=== PATIENT | female | born 1945 | race American Indian/Alaskan Native ===

== ENCOUNTER 2017-11-13 22:37 | Inpatient (IN) | payer MEDICARE, OTHER ==
[2017-11-13 22:50] VITALS: BMI 29.9
[2017-11-13] MEDS ORDERED: Oxycodone/Acetaminophen 5/325 mg Tab PO STA (23:28)
--- NOTE | 2017-11-13 23:51 | ED PDOC ---
Arrival/HPI <Wili Jha - Last Filed: 11/14/17 01:10> - General Historian: Patient <Terry Younger A - Last Filed: 11/14/17 02:08> - General Chief Complaint: Back Pain Time Seen by Provider: 11/13/17 22:56 - History of Present Illness Narrative History of Present Illness (Text): 11/13/17 23:41 71yo female with history of Scoliosis present via EMS with complaint of back pain s/p trauma. Patient reports chronic back pain that became worse after she slipped from the chair she was sitting on and fell to the floor. States she landed backwards on the floor. States pain started few hours after the fall. States pain is sharp and worse with movement. States pain radiates to her lower legs b/l. She report that she takes Percocet for her pain and took it after the trauma. she denies hitting her head. Denies LOC, focal weakness, nausea, vomiting, urinary/fecal incontinence, saddle anesthesia. any other complaint. ( Terry Younger) Past Medical History - Provider Review Nursing Documentation Reviewed: Yes - Infectious Disease Hx of Infectious Diseases: None - Cardiac Hx Pacemaker: No - Neurological Hx Paralysis: No - Hematological/Oncological Hx Blood Transfusions: No - Musculoskeletal/Rheumatological Hx Musculoskeletal Disorders: Yes (SCOLIOSIS) - Psychiatric Hx Emotional Abuse: No Hx Physical Abuse: No Hx Substance Use: No - Anesthesia Hx Anesthesia Reactions: No Hx Malignant Hyperthermia: No - Suicidal Assessment Feels Threatened In Home Enviroment: No <Terry Younger - Last Filed: 11/14/17 02:08> Family/Social History - Physician Review Nursing Documentation Reviewed: Yes Family/Social History: Unknown Family HX Smoking Status: Never Smoked Hx Alcohol Use: No Hx Substance Use: No <Terry Younger A - Last Filed: 11/14/17 02:08> Allergies/Home Meds <Wili Jha - Last Filed: 11/14/17 01:10> <Terry Younger A - Last Filed: 11/14/17 02:08> Allergies/Adverse Reactions: Allergies No Known Allergies Allergy (Verified 03/26/13 10:25) Home Medications: Home Meds Medication Instructions Recorded Confirmed Carisoprodol [Soma] 250 mg PO BID 03/26/13 03/26/13 Review of Systems - Physician Review All systems were reviewed & negative as marked: Yes - Review of Systems Constitutional: Normal Eyes: Normal ENT: Normal Respiratory: Normal Cardiovascular: Normal Gastrointestinal: Normal Genitourinary Female: Normal Musculoskeletal: Back Pain Skin: Normal Neurological: Normal Endocrine: Normal Hemo/Lymphatic: Normal Psychiatric: Normal <Terry Younger A - Last Filed: 11/14/17 02:08> Physical Exam Vital Signs Reviewed: Yes Temperature: Afebrile Blood Pressure: Normal Pulse: Regular Respiratory Rate: Normal Appearance: Positive for: Well-Appearing, Non-Toxic, Comfortable Pain Distress: None Mental Status: Positive for: Alert and Oriented X 3 - Systems Exam Head: Present: Atraumatic, Normocephalic Pupils: Present: PERRL Extroacular Muscles: Present: EOMI Conjunctiva: Present: Normal Mouth: Present: Moist Mucous Membranes Neck: Present: Normal Range of Motion Respiratory/Chest: Present: Clear to Auscultation, Good Air Exchange. No: Respiratory Distress, Accessory Muscle Use Cardiovascular: Present: Regular Rate and Rhythm, Normal S1, S2. No: Murmurs Abdomen: No: Tenderness, Distention, Peritoneal Signs Back: Present: Pain with Leg Raise (B/L). No: Midline Tenderness, Paraspinal Tenderness Upper Extremity: Present: Normal Inspection. No: Cyanosis, Edema Lower Extremity: Present: Normal Inspection. No: Edema Neurological: Present: GCS=15, CN II-XII Intact, Speech Normal Skin: Present: Warm, Dry, Normal Color. No: Rashes Psychiatric: Present: Alert, Oriented x 3, Normal Insight, Normal Concentration <Terry Younger A - Last Filed: 11/14/17 02:08> Vital Signs Temp Pulse Resp BP Pulse Ox 11/14/17 01:59 98.2 F 94 H 18 144/85 98 11/13/17 22:46 97.9 F 103 H 18 163/98 H 97 Medical Decision Making <Wili Jha - Last Filed: 11/14/17 01:10> <Terry Younger - Last Filed: 11/14/17 02:08> ED Course and Treatment: 11/14/17 02:03 PT in ED for stated history. She continued to complain of pain s/p medication was given. LS CT IMPRESSION: - No acute lumbar spine fractures identified. - Findings involving the sacroiliac joint which could be secondary to marked sacroiliitis versus degenerative changes. - Postoperative changes. - See above for remaining findings. Head CT - No acute finding Secondary to pt's persistent pain she will be admitted for possible MRI and evaluation. Case was DW Dr. Mendoza and she accepted pt for admission. (Aren,Terry Briscoe) - RAD Interpretation Radiology Orders: 11/13/17 22:56 HEAD W/O CONTRAST [CT] Stat LUMBAR SPINE W/O CONTRAST [CT] Stat - Medication Orders Current Medication Orders: Discontinued Medications Diazepam (Valium) 5 mg PO ONCE ONE PRN Reason: Protocol Stop: 11/14/17 00:50 Last Admin: 11/14/17 01:27 Dose: 5 mg Ketorolac Tromethamine (Toradol) 30 mg IVP STAT STA Stop: 11/14/17 00:50 Last Admin: 11/14/17 01:27 Dose: 30 mg MAR Pain Assessment Document 11/14/17 01:27 HERMINIO (Rec: 11/14/17 01:28 HERMINIO [id number]) Pain Reassessment Is this a pain reassessment? Yes Sleep Is patient sleeping during reassessment? No Location Pain Location Body Site Back IVP Administration Document 11/14/17 01:27 HERMINIO (Rec: 11/14/17 01:28 HERMINIO [id number]) Charges for Administration # of IVP Administrations 1 Oxycodone/Acetaminophen (Percocet 5/325 Mg Tab) 1 tab PO STAT STA Stop: 11/13/17 23:29 Last Admin: 11/14/17 00:16 Dose: 1 tab MAR Pain Assessment Document 11/14/17 00:16 HERMINIO (Rec: 11/14/17 00:16 HERMINIO [id number]) Pain Reassessment Is this a pain reassessment? Yes Sleep Is patient sleeping during reassessment? No Presence of Pain Presence of Pain Yes Location Upper or Lower Lower Pain Location Body Site Back - PA / COLORIST / Resident Statement / has reviewed & agrees with the documentation as recorded. / has examined the patient and agrees with the treatment plan. <Wili Jha - Last Filed: 11/14/17 01:10> Disposition/Present on Arrival <Wili Jha - Last Filed: 11/14/17 01:10> - Present on Arrival Any Indicators Present on Arrival: No History of DVT/PE: No History of Uncontrolled Diabetes: No Urinary Catheter: No History of Decub. Ulcer: No History Surgical Site Infection Following: None - Disposition Have Diagnosis and Disposition been Completed?: Yes Disposition Time: 01:00 Patient Plan: Admission <Terry Yougner - Last Filed: 11/14/17 02:08> - Disposition Diagnosis: Sacroiliitis, Intractable back pain, Fall Disposition: HOSPITALIZED Patient Problems: Current Active Problems Problem Status Onset Fall Acute Intractable back pain Acute Sacroiliitis Acute Condition: STABLE
--- NOTE | 2017-11-14 00:23 | CT ---
EXAM: CT Head Without Intravenous Contrast EXAM DATE/TIME: 11/13/2017 10:56 PM CLINICAL HISTORY: 71 years old, female; Injury or trauma; Fall; Initial encounter; Blunt trauma (contusions or hematomas); Consciousness not specified; Additional info: Head injury TECHNIQUE: Axial computed tomography images of the head/brain without intravenous contrast. All CT scans at this facility use one or more dose reduction techniques, viz.: automated exposure control; ma/kV adjustment per patient size (including targeted exams where dose is matched to indication; i.e. head); or iterative reconstruction technique. COMPARISON: No relevant prior studies available. FINDINGS: BRAIN: Physiologic basal ganglia calcification. No significant acute abnormality identified. No acute hemorrhage seen within the brain. No acute extra-axial fluid collections visualized. No evidence of significant mass effect within the brain. VENTRICLES: No evidence of significant hydrocephalus. BONES/JOINTS: Left nasal bone fracture, which appears chronic. No acute fractures are seen. SOFT TISSUES: No acute abnormality of the visualized soft tissues is seen. SINUSES: Visualized paranasal sinuses appear clear. MASTOID AIR CELLS: Mastoid air cells appear clear. IMPRESSION: - No evidence of acute intracranial injury. - See above for remaining findings.
--- NOTE | 2017-11-14 00:36 | CT ---
EXAM: CT Lumbar Spine Without Intravenous Contrast EXAM DATE/TIME: 11/13/2017 10:56 PM CLINICAL HISTORY: 71 years old, female; Pain; Low back pain TECHNIQUE: Axial computed tomography images of the lumbar spine without intravenous contrast. All CT scans at this facility use one or more dose reduction techniques, viz.: automated exposure control; ma/kV adjustment per patient size (including targeted exams where dose is matched to indication; i.e. head); or iterative reconstruction technique. Coronal and sagittal reformatted images were created and reviewed. COMPARISON: No relevant prior studies available. FINDINGS: LIMITATIONS: Streak artifact from metallic hardware in the spine. VERTEBRAE: Long, left-sided metallic kaden extending from the lower thoracic spine to the S1 level. Extensive chronic bony hypertrophic changes involving the posterior elements of T11 through L5. Vertebrae appear demineralized. Left convex scoliosis of the spine. No acute fractures are seen. No evidence of acute vertebral compression fractures. SACRUM/COCCYX: Extensive cystic changes involving the sacroiliac joints. Extensive sclerosis abutting the sacroiliac joints. Air in the sacroiliac joints bilaterally. Findings could be secondary to marked sacroiliitis versus degenerative changes. OTHER BONES/JOINTS: Postoperative changes involving the left iliac bone. DISCS/SPINAL CANAL/NEURAL FORAMINA: Intervertebral disc heights are preserved. No evidence of bony spinal canal stenosis. SOFT TISSUES: No acute abnormality of the visualized soft tissues is seen. REPRODUCTIVE: Calcified uterine fundal mass incidentally noted, most compatible a fibroid. IMPRESSION: - No acute lumbar spine fractures identified. - Findings involving the sacroiliac joint which could be secondary to marked sacroiliitis versus degenerative changes. - Postoperative changes. - See above for remaining findings.
[2017-11-14 02:06] LABS: BASO # 0.03 K/mm3 (0.0-2.0); BASO % 0.3 % (0.0-3.0); EOS # 0.2 (0.0-0.7); EOS % 1.6 % (1.5-5.0); GRAN # 5.83 (1.4-6.5); GRAN % 59.1 % (50.0-68.0); HEMOGLOBIN 11.2 g/dL (12.0-16.0); LYMPH # 3.3 (1.2-3.4); LYMPH % 33.6 % (22.0-35.0); MEAN CORPUSCULAR HGB CONC 31.8 g/dl (31.0-37.0); MEAN PLATELET VOLUME 9.1 fl (7.0-11.0); MONO # 0.5 (0.1-0.6); MONO % 5.4 % (1.0-6.0); RED CELL DISTRIBUTION WIDTH 15.3 % (11.5-14.5); WHITE BLOOD COUNT 9.9 10^3/ul (4.5-11.0)
[2017-11-14 02:08] LABS: ALB/GLOB RATIO 1.2 (1.1-1.8); ALT/SGPT 16 U/L (7-56); AST/SGOT 29 U/L (14-36); BLOOD UREA NITROGEN 8 mg/dL (7-21); CALCIUM 9.1 mg/dL (8.4-10.5); GFR AFRICAN-AMERICAN > 60; GFR NON-AFRICAN AMERICAN > 60
[2017-11-14] MEDS ORDERED: Potassium Chloride 20 mEq ER Tab PO STA (02:11)
[2017-11-14] MEDS: Oxycodone/Acetaminophen 10/325 mg Tab PO PRN ×2 (11:19→18:41)
[2017-11-14] MEDS: TraMADol/Apap 37.5/325 mg Tab PO PRN ×2 (15:37→22:16)
[2017-11-14] MEDS: Lidocaine 5% Patch TD SCH (17:52)
--- NOTE | 2017-11-14 18:42 | RAD ---
HISTORY: fall/back pain COMPARISON: No prior. FINDINGS: BONES: Moderate to severe dextroscoliotic curvature. Vertebral bodies appear maintained in height. No listhesis. Left-sided spinal kaden noted. DISC SPACES: Normal. SOFT TISSUES: Normal. OTHER FINDINGS: None. IMPRESSION: No evidence acute fracture. Dextroscoliosis with spinal fixation rods.
--- NOTE | 2017-11-14 18:44 | RAD ---
PROCEDURE: Radiographs of the pelvis and bilateral hips HISTORY: s/p fall lower back pain COMPARISON: None. FINDINGS: BONES: Pelvis: Unremarkable. Right hip:Unremarkable Left hip:Unremarkable JOINTS: Right hip: Osteoarthritis Left hip: Osteoarthritis Sacroiliac Joints: Severe degenerative arthritis of both sacroiliac joints with extensive surrounding sclerosis. Pubic symphysis: Unremarkable. SOFT TISSUES: Normal. OTHER FINDINGS: None. IMPRESSION: Osteoarthritis of both hips. Degenerative arthritis of both sacroiliac joints.
--- NOTE | 2017-11-14 19:21 | CARD ---
APPROVED REPORT EKG Measurement Heart [id number] <Conclusion> Normal sinus rhythm Normal ECG
--- NOTE | 2017-11-15 04:13 | HP ---
HISTORY OF PRESENT ILLNESS: The patient is a 71-year-old, known to me from office practice. Patient stated last night she was getting something from her . She was standing on the chair; she does not know how she tripped and fell. She fell on her back and since then she is having lower back pain, upper back pain. Denies any weakness, numbness. Denies any chest pain. She states when she coughs or take deep breath, it hurts. Denies any weakness or numbness in both legs. PAST MEDICAL HISTORY: She has past medical history significant for, 1. Severe kyphoscoliosis. 2. History of generalized osteoarthritis. 3. Chronic lower back pain. ALLERGIES: SHE IS NOT ALLERGIC TO ANY MEDICATION. MEDICATIONS AT HOME: She is on Percocet. Takes Soma 250 four times a day. She is seeing pain management for that. SOCIAL HISTORY: She lives by herself. Denies smoking, drinking or alcohol use. PHYSICAL EXAMINATION: GENERAL: She is awake, alert, oriented, able to communicate. Complaining of lower back pain. Complaining of bilateral hip pain. VITAL SIGNS: She is afebrile. Pulse 95, respirations 18, blood pressure 131/81. LUNGS: Bilateral good airflow. No rhonchi or crackles. HEART: S1, S2 audible. ABDOMEN: Soft. MUSCULOSKELETAL: She has significant kyphoscoliosis, more pronounced on the right posteriorly. NEUROLOGIC: She has full range of motion on both legs. No weakness or numbness noted. LABORATORY EXAMINATION: WBC is 9.9, hemoglobin 11.2, hematocrit 35.2, platelet 306. Chemistry: Sodium 141, potassium 3.4, chloride 103, CO2 of 26, BUN 8, creatinine 0.7, blood sugar 121. She has CT scan of lumbar spine and CT of the head done. She has degenerative changes in her lumbar spine and CT scan of the head is unremarkable. ASSESSMENT: 1. Intractable lower back pain. 2. History of significant kyphoscoliosis. 3. Degenerative disk disease. 4. Status post fall. PLAN: So plan is, I will order for bilateral hip and x-ray of thoracic spine and we will continue her on current muscle relaxers. We will start her on antiinflammatory, Mobic 15 mg daily and evaluate for physical therapy and if patient's pain seems to be subsiding, we might send home on p.o. Since the patient lives alone, is high risk for fall. Might consider TCU, but we will make decision after evaluating tomorrow. Adilson Mendoza MD
[2017-11-15] MEDS: Oxycodone/Acetaminophen 10/325 mg Tab PO PRN ×3 (04:58→20:20)
[2017-11-15] MEDS: Lidocaine 5% Patch TD SCH (10:11)
[2017-11-15] MEDS: TraMADol/Apap 37.5/325 mg Tab PO PRN ×2 (10:11→18:16)
--- NOTE | 2017-11-15 13:43 | PN ---
DATE: 11/15/2017 SUBJECTIVE: The patient is a 71 years old, still complain of pain, has difficulty walking, unstable gait. She states pain medicine is really not helping much except temporary relief for few hours. PHYSICAL EXAMINATION: VITAL SIGNS: She is afebrile, pulse 95, respirations 18, blood pressure 131/81. LUNGS: Bilateral good airflow. No rhonchi or crackles. HEART: S1 and S2 audible. ABDOMEN: Soft, nontender. No rebound, no guarding. NEUROLOGICAL: She is awake, alert, oriented, able to communicate. No focal deficits. She has significant right dextroscoliosis. X-ray of both hip and the pelvis has severe osteoarthritis with dextroscoliosis. PLAN: The patient needs rehab. It is unsafe to discharge. She has high risk for fall. She lives alone. We will continue on her current medication. The patient will be transferred to TCU when bed is available. Adilson Mendoza MD
[2017-11-15] MEDS: POLYETHYLENE GLYCOL 3350 17 GM/Dose PACKET PO SCH (21:37)
[2017-11-16] MEDS: Oxycodone/Acetaminophen 10/325 mg Tab PO PRN ×3 (05:41→20:20)
[2017-11-16] MEDS: POLYETHYLENE GLYCOL 3350 17 GM/Dose PACKET PO SCH (09:44)
[2017-11-16] MEDS: Lidocaine 5% Patch TD SCH (09:44)
[2017-11-16] MEDS: TraMADol/Apap 37.5/325 mg Tab PO PRN (09:44)
[2017-11-16] MEDS ORDERED: Magnesium Citrate Oral SOL (300 ml) PO ONE (11:24)
--- NOTE | 2017-11-16 17:17 | PN ---
DATE: 11/16/2017 SUBJECTIVE: Patient is 71 years old, seen and examined, complaining of back pain, complaining of lower back pain and complaining of pelvic area and hip joint pain. Also had constipation, did not go for 5 days. PHYSICAL EXAMINATION: VITAL SIGNS: She is afebrile, pulse 100, respirations 18, blood pressure 119/58. LUNGS: Bilateral fair airflow. No rhonchi or crackle. HEART: S1, S2 audible. ABDOMEN: Soft, nontender. No rebound. No guarding. NEUROLOGICAL: Patient is awake and alert, able to communicate, had difficulty walking because of the pain. ASSESSMENT: 1. Severe kyphoscoliosis. 2. Status post fall. 3. Hypertension. 4. Generalized degenerative disk disease. PLAN: I will give magnesium citrate and I will continue her on Flexeril, lidocaine patch and continue her on Mobic. Awaiting to be transferred to [facility]. Adilson Mendoza MD
[2017-11-16] MEDS ORDERED: POLYETHYLENE GLYCOL 3350 17 GM/Dose PACKET PO ONE (17:55)
[2017-11-16 18:30] VITALS: O2SAT 96
[2017-11-17 07:48] VITALS: BP 133/72; PULSE 88; RESP 20; TEMP 97.8
[2017-11-17] MEDS: Lidocaine 5% Patch TD SCH (09:38)
[2017-11-17] MEDS: TraMADol/Apap 37.5/325 mg Tab PO PRN (09:38)
[2017-11-17] MEDS: POLYETHYLENE GLYCOL 3350 17 GM/Dose PACKET PO SCH (09:38)
[2017-11-17] MEDS: Oxycodone/Acetaminophen 10/325 mg Tab PO PRN (13:20)
--- NOTE | 2017-11-18 11:07 | DS ---
HISTORY OF PRESENT ILLNESS: Patient is a 71 years old who was admitted with intractable back pain after she fell. Patient has severe kyphoscoliosis, was complaining of some back pain and hip pain, leg pain, had all x-rays done, showed severe osteoarthritis. Patient lives by herself, high risk for fall, so referred to TCU where she is kept and being discharged today. PHYSICAL EXAMINATION: GENERAL: She is awake, alert, oriented, communicative. VITAL SIGNS: She is afebrile. Pulse 88, respiration 20, blood pressure 133/72. LUNGS: Bilateral fair airflow. No rhonchi or crackles. HEART: S1 and S2 audible. ABDOMEN: Soft, nontender. No rebound, no guarding. NEUROLOGIC: She is awake, alert, oriented, communicative. ASSESSMENT AND PLAN: 1. Severe kyphoscoliosis. 2. Status post fall. 3. Generalized osteoarthritis, status post spine surgery and kaden placement many many years ago. 4. Constipation secondary to narcotics. PLAN: Patient is being discharged today. We will continue her on Flexeril, lidocaine patch. She will stay on MiraLax and we will add Colace. Patient will be transferred today and we will follow up patient in TCU. Adilson Mendoza MD
== END 2017-11-17 15:02 | DRG 552 ==
LOC: ED 22:37 → ERH 11-14 01:05 → 3RNO 11-14 02:26 → OBSVTOIN 11-14 12:51
PROVIDERS: ADMIT Internal Medicine; ATTEND Internal Medicine
DX: M41.9 Scoliosis, unspecified (principal); M46.1 Sacroiliitis, not elsewhere classified; G89.29 Other chronic pain; I10 Essential (primary) hypertension; K59.03 Drug induced constipation; M15.9 Polyosteoarthritis, unspecified; T40.605A Adverse effect of unspecified narcotics, initial encounter; W07.XXXA Fall from chair, initial encounter; M51.36 Other intervertebral disc degeneration, lumbar region

== ENCOUNTER 2017-11-17 15:05 | Inpatient (IN) | payer OTHER ==
[2017-11-17] MEDS: TraMADol/Apap 37.5/325 mg Tab PO PRN ×2 (17:06→23:06)
[2017-11-18] MEDS: Lidocaine 5% Patch TD SCH (09:50)
[2017-11-18] MEDS: POLYETHYLENE GLYCOL 3350 17 GM/Dose PACKET PO SCH (09:50)
[2017-11-18] MEDS: TraMADol/Apap 37.5/325 mg Tab PO PRN ×3 (09:56→21:01)
[2017-11-19] MEDS: TraMADol/Apap 37.5/325 mg Tab PO PRN ×3 (05:27→21:26)
[2017-11-19] MEDS: POLYETHYLENE GLYCOL 3350 17 GM/Dose PACKET PO SCH (09:59)
[2017-11-19] MEDS: Lidocaine 5% Patch TD SCH (09:59)
--- NOTE | 2017-11-19 23:00 | HP ---
HISTORY OF PRESENT ILLNESS: The patient is a 71-year-old, while fixing her cubby, she was on the chair, she fell. The patient has a significant past medical history of generalized osteoarthritis, significant kyphoscoliosis. She came in with intractable pain, still complaining of pain, transferred to TCU for rehab and gait training because she was unstable. PAST MEDICAL HISTORY: Significant for: 1. Hypertension. 2. Kyphoscoliosis. 3. Generalized osteoarthritis. ALLERGIES: SHE IS NOT ALLERGIC TO ANY MEDICATION. MEDICATION AT HOME: She is on tramadol, Mobic, lidocaine, Flexeril, and Percocet. SOCIAL HISTORY: Denies smoking, drinking, or alcohol use. REVIEW OF SYSTEMS: Still has back pain and intermittent constipation. PHYSICAL EXAMINATION: GENERAL: She is awake, alert, oriented, communicative. VITAL SIGNS: She is afebrile. Pulse 89, respirations 16, blood pressure 110/71. LUNGS: Bilateral good airflow. No rhonchi or crackle. HEART: S1 and S2 audible. ABDOMEN: Soft, nontender. No rebound. No guarding. NEUROLOGIC: The patient is awake, alert, oriented, able to communicate. She has significant kyphoscoliosis. No motor or sensory deficits. EXTREMITIES: Bilateral legs, no edema. ASSESSMENT: 1. Intractable pain. 2. Unstable gait. 3. Constipation. 4. Generalized osteoarthritis. PLAN: Start a small dose of fentanyl patch. If that alleviates her pain, she might not need oral analgesics as much. Continue physical therapy. We will follow up the patient in a.m. Adilson Mendoza MD
[2017-11-20] MEDS: TraMADol/Apap 37.5/325 mg Tab PO PRN ×3 (05:14→21:19)
[2017-11-20] MEDS: Lidocaine 5% Patch TD SCH (09:35)
[2017-11-20] MEDS: POLYETHYLENE GLYCOL 3350 17 GM/Dose PACKET PO SCH (09:36)
--- NOTE | 2017-11-20 16:58 | PN ---
DATE: 11/20/2017 SUBJECTIVE: Patient is 71 years old, seen and examined, sitting in chair, complaining of back pain, complaining of lower back pain. She states she had fentanyl patch, but it came off during night. She does not feel any relief in pain, getting physical therapy. PHYSICAL EXAMINATION: VITAL SIGNS: She is afebrile, pulse 89, respirations 16, blood pressure 138/89. LUNGS: Bilateral good airflow. No rhonchi or crackle. HEART: S1, S2 audible. ABDOMEN: Soft, nontender. No rebound. No guarding. NEUROLOGICAL: Patient is awake and alert. LABORATORY DATA: No new labs available today. ASSESSMENT AND PLAN: 1. Severe kyphoscoliosis. 2. Status post fall. 3. Intractable back pain. 4. Degenerative disk disease. PLAN: Will restart her on Duragesic patch, will continue on Mobic and continue on muscle relaxant and laxative as needed. Adilson Mendoza MD
[2017-11-21] MEDS: TraMADol/Apap 37.5/325 mg Tab PO PRN ×3 (07:16→21:16)
[2017-11-21] MEDS: POLYETHYLENE GLYCOL 3350 17 GM/Dose PACKET PO SCH (09:59)
[2017-11-21] MEDS: Lidocaine 5% Patch TD SCH (10:02)
--- NOTE | 2017-11-21 14:06 | PN ---
DATE: 11/21/2017 SUBJECTIVE: Patient is 71 years old, seen and examined, still complaining of abdominal pain, complaining of back pain. She has diarrhea secondary to stool softener. PHYSICAL EXAMINATION: VITAL SIGNS: She is afebrile, pulse 89, respirations 16, blood pressure 138/89. LUNGS: Bilateral good airflow. No rhonchi or crackle. HEART: S1, S2 audible. ABDOMEN: Soft, nontender. No rebound. No guarding. NEUROLOGICAL: She is awake, alert, oriented, able to communicate. LABORATORY DATA: There is no new lab available today. ASSESSMENT AND PLAN: 1. Status post fall. 2. Severe kyphoscoliosis. 3. History of hypertension. PLAN: I will increase her Duragesic patch to 50 mcg daily. I will continue her on Mobic, Percocet as needed. Discontinue her stool softener. We will follow up this patient in a.m. Continue physical therapy and gait. Adilson Mendoza MD
[2017-11-22] MEDS: TraMADol/Apap 37.5/325 mg Tab PO PRN ×3 (05:08→21:07)
--- NOTE | 2017-11-22 14:02 | PN ---
DATE: 11/22/2017 SUBJECTIVE: The patient is 71 years old. Seen and examined. Sitting in chair. Seems to be comfortable. Has company. She states Duragesic patch did help her. PHYSICAL EXAMINATION: GENERAL: She is awake, alert, oriented, communicative. VITAL SIGNS: She is afebrile, pulse 112, respirations 18, blood pressure 144/85. LUNGS: Bilateral good airflow. No rhonchi or crackle. HEART: S1 and S2 audible. ABDOMEN: Soft. Nontender. No rebound. No guarding. MUSCULOSKELETAL: She has significant kyphoscoliosis. ASSESSMENT: 1. Status post fall. 2. Kyphoscoliosis. 3. Degenerative disk disease. 4. Status post constipation, seems to be doing well. PLAN: We will continue the patient on Duragesic patch current dose. Continue physical therapy and occupational therapy. We will keep her on intermittent tramadol as needed. Adilson Mendoza MD
[2017-11-23] MEDS: TraMADol/Apap 37.5/325 mg Tab PO PRN ×3 (05:16→21:49)
--- NOTE | 2017-11-23 12:08 | PN ---
DATE: 11/23/2017 SUBJECTIVE: The patient is 72 years old, seen and examined. Still has back pain. Fentanyl patch has helped her somewhat. She states she might benefit even more if it is increased the next dose while she is here, she want to try. Denies any nausea or vomiting. Ambulating better than before. PHYSICAL EXAMINATION: VITAL SIGNS: She is afebrile, pulse 108, respirations 16, blood pressure 113/75. LUNGS: Bilateral good airflow. No rhonchi or crackle. HEART: S1 and S2 audible. ABDOMEN: Soft. Nontender. No rebound. No guarding. NEUROLOGICAL: The patient is awake, alert, oriented, communicative, able to ambulate. Has significant kyphoscoliosis. ASSESSMENT: 1. Significant kyphoscoliosis. 2. Status post falls. 3. Degenerative disk disease. 4. Deconditioning and difficulty walking. PLAN: I will increase her Duragesic patch to 75 mcg and continue all other medications. The patient is scheduled to be discharged on Sunday. Adilson Mendoza MD
[2017-11-24] MEDS: TraMADol/Apap 37.5/325 mg Tab PO PRN ×3 (06:11→21:26)
[2017-11-24 17:10] VITALS: PULSE 93; RESP 18; TEMP 98; O2SAT 98
[2017-11-24 19:51] VITALS: BP 136/90
--- NOTE | 2017-11-24 23:34 | PN ---
DATE: 11/24/2017 SUBJECTIVE: The patient is a 71-year-old, seen and examined, complained of generalized aching, has rash on the dorsum of both hands. No nausea or vomiting. No constipation. Pain is better with the patch. PHYSICAL EXAMINATION: VITAL SIGNS: She is afebrile, pulse 93, respirations 18, blood pressure 147/104. LUNGS: Bilateral good airflow. No rhonchi or crackle. HEENT: S1 and S2 audible. ABDOMEN: Soft, nontender. No rebound. No guarding. NEUROLOGICAL: Patient is awake, alert, oriented, communicative, ambulatory. Has significant kyphoscoliosis. ASSESSMENT: 1. Dermatitis with itching on the dorsum of the hand. 2. Kyphoscoliosis. 3. Difficulty walking. 4. Constipation. PLAN: I will give her Claritin. We will put Lidex on dorsum of the hand. Continue current analgesic regimen. Discharge plan . Adilson Mendoza MD
[2017-11-25] MEDS: TraMADol/Apap 37.5/325 mg Tab PO PRN (07:49)
--- NOTE | 2017-11-25 20:21 | DS ---
HISTORY OF PRESENT ILLNESS: Patient is a 72-year-old black female, who fell at home, had intractable back. Patient has significant kyphoscoliosis and degenerative disc disease and x-rays done, no acute fracture; however, she lives alone, was high risk for fall again; so, was transferred to TCU for further physical therapy and gait training. Did well during stay. No events noted. PHYSICAL EXAMINATION: VITAL SIGNS: Patient is afebrile. Pulse 93, respiration 18, blood pressure 136/90. LUNGS: Bilateral fair airflow. No rhonchi or crackles. HEART: S1 and S2 audible. ABDOMEN: Soft, nontender. No rebound, no guarding. NEUROLOGIC: Patient is awake, alert, oriented, communicative and ambulatory. ASSESSMENT AND PLAN: 1. Status post fall. 2. Status post intractable back pain. 3. Degenerative disc disease. 4. Significant kyphoscoliosis. PLAN: Patient will be discharged home on Duragesic patch and she will follow up with our Pain Management. She was given prescription of Ultracet and she was also given Flexeril 5 mg three times a day, and she is on Duragesic patch 75 mcg every 72 hours. She will follow up with me in 2 to 3 weeks and she will follow up with PMD on Sunday. She has already have appointment. Adilson Mendoza MD
== END 2017-11-25 12:37 | disposition home or self-care (01) | DRG 552 ==
LOC: TRCU 15:05
PROVIDERS: ADMIT Internal Medicine; ATTEND Internal Medicine
PROC: F07Z9FZ Gait Training/Functional Ambulation Treatment using Assistive, Adaptive, Supportive or Protective Equipment (ICD-10-PCS; principal; 2017-11-18)
PROC: F07M6ZZ Therapeutic Exercise Treatment of Musculoskeletal System - Whole Body (ICD-10-PCS; 2017-11-18)
PROC: F08Z1ZZ Dressing Techniques Treatment (ICD-10-PCS; 2017-11-19)
PROC: F08Z2ZZ Grooming/Personal Hygiene Treatment (ICD-10-PCS; 2017-11-19)
PROC: F08Z0ZZ Bathing/Showering Techniques Treatment (ICD-10-PCS; 2017-11-19)
PROC: F08Z4ZZ Home Management Treatment (ICD-10-PCS; 2017-11-19)
DX: M41.9 Scoliosis, unspecified (principal); M15.9 Polyosteoarthritis, unspecified; W19.XXXA Unspecified fall, initial encounter; Y92.009 Unspecified place in unspecified non-institutional (private) residence as the place of occurrence of the external cause; I10 Essential (primary) hypertension; K59.00 Constipation, unspecified; L30.9 Dermatitis, unspecified; R26.2 Difficulty in walking, not elsewhere classified